=== PATIENT | female | born 1975 | race Caucasian/White ===

== ENCOUNTER 2018-06-14 06:36 | Emergency (ER) | payer OTHER ==
[~2018-06-14] VITALS: Ht 157.5 cm; Wt 72.6 kg
[~2018-06-14 06:36] MED LIST: ZOFRAN ODT4 MG PO; ZOFRAN ODT4 MG SUBLING
[2018-06-14 07:46] LABS: ABSOLUTE EOSINOPHILS 0.3 thou/uL (0.0-0.7); HEMATOCRIT 38.7 % (37.0-47.0); PLATELET COUNT* 196 thou/uL (150-400); WBC 6.4 thou/uL (4.0-11.0)
[2018-06-14 07:48] LABS: ABSOLUTE BASOPHILS 0.1 thou/uL (0.0-0.2); ABSOLUTE LYMPHOCYTES 1.8 thou/uL (0.8-5.3); ABSOLUTE MONOCYTES 0.4 thou/uL (0.0-1.2); ABSOLUTE NEUTROPHILS 3.8 thou/uL (1.6-8.1); BASOPHILS 1.8 %; EOSINOPHILS 5.1 %; HEMOGLOBIN 12.8 gm/dL (12.0-15.0); LYMPHOCYTES 27.8 %; MCH 30.8 pg (26.0-34.0); MCHC 33.1 g/dL (28.0-37.0); MCV 93.1 fL (80.0-100.0); MONOCYTES 6.5 %; MPV 9.3 fl. (7.2-11.1); NUCLEATED RBCS 0 /100WBC; POLYS 58.8 %; RBC 4.15 mil/uL (4.20-5.00); RDW-CV 13.4 % (10.5-14.5)
[2018-06-14 07:53] LABS: ANION GAP 11 mmol/L (7-16); BUN 12 mg/dL (7-18); CALCIUM 8.8 mg/dL (8.5-10.1); CHLORIDE 105 mmol/L (98-107); CO2 26 mmol/L (21-32); CREATININE 0.7 mg/dL (0.6-1.3); GLUCOSE 98 mg/dL (70-99); POTASSIUM 3.8 mmol/L (3.5-5.1); SODIUM 142 mmol/L (136-145)
[2018-06-14 08:01] LABS: ALBUMIN 3.6 g/dL (3.4-5.0); SGOT 20 U/L (15-37); SGPT 29 U/L (30-65); TOTAL BILIRUBIN 0.2 mg/dL (<0.1-1.0); TOTAL PROTEIN 6.9 g/dL (6.4-8.2); TROPONIN-I LEVEL <0.06 ng/mL (<0.06)
[2018-06-14 08:15] LABS: ALKALINE PHOSPHATASE 70 U/L (46-116)
[2018-06-14 09:39] VITALS: BP 121/74
--- NOTE | 2018-06-15 11:37 | EKG ---
[place] [address] ELECTROCARDIOGRAM REPORT Name: BECKJACLYN [facility] [id number] Admission: 06/14/18 Attend Phys: Discharge: 06/14/18 Date of : 73 Report #: [id number] THIS REPORT FOR: //name// [facility] ED Test Date: 2018-06-14 Test Time: 07:28:05 Pat Name: JACLYN SOLARES Department: Room: Gender: F Facilities Painter: Clayton LINARES : 1975 Requested By: Dee Dee Haywood Order Number: [id number] MD: Jonel Wellington Measurements Intervals [place] Rate: 56 P: 13 DC: 162 QRS: -27 QRSD: 112 T: -1 QT: 475 QTc: 459 Interpretive Statements Sinus bradycardia Borderline intraventricular conduction delay Nonspecific T abnormalities, anterior leads Compared to ECG 11/03/2016 07:41:32 T-wave abnormality now present Electronically Signed On 06-15-2018 11:37:05 AIRLINE DISPATCHER by Jonel Wellington [email or web address] <ELECTRONICALLY SIGNED> By: Jonel Wellington MD, [facility] 06/15/18 1137 0728 0728 Jonel Wellington MD, [facility] /EPI
== END 2018-06-14 09:39 | disposition home or self-care (01) ==
LOC: M.ERS 06:36
PROVIDERS: Personal Emergency Response Attendant
DX: F41.9 Anxiety disorder, unspecified (principal); R07.89 Other chest pain

== ENCOUNTER 2019-09-09 03:02 | Emergency (ER) | payer OTHER ==
[~2019-09-09] VITALS: Ht 157.5 cm; Wt 72.6 kg
[2019-09-09 03:09] VITALS: BP 148/79
[2019-09-09] MEDS ORDERED: LIPITOR10 MG PO (03:11)
[2019-09-09] MEDS ORDERED: PREDNISONE 20 M20 M1 PO (03:37)
[2019-09-09] MEDS ORDERED: AMOXICILLIN 50500 MG PO (03:37)
[2019-09-09 03:51] LABS: INFLUENZA A ANTIGEN Negative (Negative); INFLUENZA B ANTIGEN Negative (Negative)
== END 2019-09-09 03:44 | disposition home or self-care (01) ==
LOC: M.ERS 03:02
PROVIDERS: Family Medicine
DX: J40 Bronchitis, not specified as acute or chronic (principal); E78.5 Hyperlipidemia, unspecified; Z98.890 Other specified postprocedural states

== ENCOUNTER 2020-12-10 04:12 | Emergency (ER) | payer OTHER ==
[~2020-12-10] VITALS: Ht 157.5 cm; Wt 81.7 kg
[~2020-12-10 04:12] MED LIST changes: +AMOXICILLIN 50500 MG PO; +LIPITOR10 MG PO; +PREDNISONE 20 M20 M1 PO
[2020-12-10] MEDS ORDERED: CRESTOR10 MG PO (04:27)
[2020-12-10] MEDS ORDERED: LEXAPRO 10 MG T10 M2 PO (04:27)
[2020-12-10 04:48] LABS: CALCIUM 8.4 mg/dL (8.5-10.1); CREATININE 0.8 mg/dL (0.6-1.3); POTASSIUM 3.8 mmol/L (3.5-5.1)
[2020-12-10 04:53] LABS: MAGNESIUM 2.1 mg/dL (1.8-2.4); TOTAL BILIRUBIN 0.3 mg/dL (<0.1-1.0); TOTAL PROTEIN 7.5 g/dL (6.4-8.2)
[2020-12-10 05:07] LABS: ABSOLUTE BASOPHILS 0.1 thou/uL (0.0-0.2); ABSOLUTE EOSINOPHILS 0.3 thou/uL (0.0-0.7); ABSOLUTE LYMPHOCYTES 2.1 thou/uL (0.8-5.3); ABSOLUTE MONOCYTES 0.4 thou/uL (0.0-1.2); ABSOLUTE NEUTROPHILS 3.2 thou/uL (1.6-8.1); BASOPHILS 2.4 %; EOSINOPHILS 5.5 %; HEMATOCRIT 38.1 % (37.0-47.0); HEMOGLOBIN 12.8 gm/dL (12.0-15.0); LYMPHOCYTES 34.1 %; MCH 30.2 pg (26.0-34.0); MCHC 33.5 g/dL (28.0-37.0); MCV 89.9 fL (80.0-100.0); NUCLEATED RBCS 0 /100WBC; PLATELET COUNT* 229 thou/uL (150-400); RBC 4.24 mil/uL (4.20-5.00); RDW-CV 14.1 % (10.5-14.5); WBC 6.1 thou/uL (4.0-11.0)
[2020-12-10 05:36] LABS: URINE BILIRUBIN NEGATIVE (Negative); URINE BLOOD NEGATIVE (Negative); URINE CLARITY CLEAR; URINE COLOR YELLOW; URINE GLUCOSE-RANDOM NEGATIVE (Negative); URINE KETONES NEGATIVE (Negative); URINE LEUKOCYTES-REFLEX NEGATIVE (Negative); URINE NITRITE-REFLEX NEGATIVE (Negative); URINE PROTEIN NEGATIVE (Negative); URINE SPECIFIC GRAVITY 1.025 (1.005-1.030); URINE UROBILINOGEN 0.2 E.U./dl (0.2-1.0)
[2020-12-10] MEDS ORDERED: ZOFRAN ODT4 MG PO (05:53)
[2020-12-10] MEDS ORDERED: PROTONIX40 MG PO (05:53)
[2020-12-10 06:31] VITALS: BP 123/75
== END 2020-12-10 06:32 | disposition home or self-care (01) ==
LOC: M.ERS 04:12
PROVIDERS: Emergency Medicine
DX: R11.2 Nausea with vomiting, unspecified (principal); R10.13 Epigastric pain; K21.9 Gastro-esophageal reflux disease without esophagitis; F41.9 Anxiety disorder, unspecified; E78.5 Hyperlipidemia, unspecified; Z98.890 Other specified postprocedural states; Z79.899 Other long term (current) drug therapy

== ENCOUNTER 2020-12-15 03:53 | Emergency (ER) | payer OTHER ==
[~2020-12-15] VITALS: Ht 157.5 cm; Wt 79.4 kg
[~2020-12-15 03:53] MED LIST changes: +CRESTOR10 MG PO; +LEXAPRO 10 MG T10 M2 PO; +PROTONIX40 MG PO
[2020-12-15] MEDS ORDERED: PROTONIX40 MG PO (04:56)
[2020-12-15] MEDS ORDERED: CARAFATE 1 GM TA1 GM PO (04:56)
[2020-12-15] MEDS ORDERED: ZOFRAN ODT4 MG PO (04:56)
[2020-12-15 05:59] VITALS: BP 132/70
== END 2020-12-15 06:00 | disposition home or self-care (01) ==
LOC: M.ERS 03:53
DX: K21.9 Gastro-esophageal reflux disease without esophagitis (principal); R11.2 Nausea with vomiting, unspecified; F41.9 Anxiety disorder, unspecified; E78.5 Hyperlipidemia, unspecified; Z98.890 Other specified postprocedural states; Z79.899 Other long term (current) drug therapy

== ENCOUNTER 2021-06-13 06:10 | Emergency (ER) | payer OTHER ==
[~2021-06-13] VITALS: Ht 157.5 cm; Wt 77.1 kg
[~2021-06-13 06:10] MED LIST changes: +CARAFATE 1 GM TA1 GM PO
[2021-06-13 06:34] LABS: URINE BILIRUBIN NEGATIVE (Negative); URINE BLOOD 1+ (Negative); URINE CLARITY CLEAR; URINE COLOR YELLOW; URINE GLUCOSE-RANDOM NEGATIVE (Negative); URINE KETONES NEGATIVE (Negative); URINE LEUKOCYTES-REFLEX NEGATIVE (Negative); URINE NITRITE-REFLEX NEGATIVE (Negative); URINE PROTEIN NEGATIVE (Negative); URINE SPECIFIC GRAVITY >= 1.030 (1.005-1.030); URINE UROBILINOGEN 0.2 E.U./dl (0.2-1.0)
[2021-06-13 06:47] LABS: ABSOLUTE BASOPHILS 0.1 thou/uL (0.0-0.2); ABSOLUTE EOSINOPHILS 0.4 thou/uL (0.0-0.7); ABSOLUTE LYMPHOCYTES 1.6 thou/uL (0.8-5.3); ABSOLUTE MONOCYTES 0.3 thou/uL (0.0-1.2); ABSOLUTE NEUTROPHILS 3.4 thou/uL (1.6-8.1); BASOPHILS 1.2 %; EOSINOPHILS 6.3 %; HEMATOCRIT 37.1 % (37.0-47.0); HEMOGLOBIN 12.4 gm/dL (12.0-15.0); LYMPHOCYTES 27.3 %; MCHC 33.4 g/dL (28.0-37.0); MCV 86.9 fL (80.0-100.0); MPV 8.7 fl. (7.2-11.1); NUCLEATED RBCS 0 /100WBC; PLATELET COUNT* 235 thou/uL (150-400); POLYS 59.2 %; RBC 4.27 mil/uL (4.20-5.00); RDW-CV 14.4 % (10.5-14.5); WBC 5.8 thou/uL (4.0-11.0)
[2021-06-13 06:47] LABS: SQUAMOUS NONE SEEN /LPF (0-3)
[2021-06-13 06:48] LABS: BACTERIA-REFLEX None Seen /HPF (None Seen); CASTS None Seen /LPF (None Seen); MUCUS 0-3 Light strn/LPF (None Seen); URINE RBC 0-2 Rare /HPF (0-2); URINE WBC-REFLEX None Seen /HPF (0-5)
[2021-06-13 06:49] LABS: AMORPHOUS URATES Few /LPF (None Seen); CRYSTALS None Seen /LPF (None Seen)
[2021-06-13 07:02] LABS: CALCIUM 8.7 mg/dL (8.5-10.1); CREATININE 0.9 mg/dL (0.6-1.3); POTASSIUM 3.7 mmol/L (3.5-5.1)
[2021-06-13 07:06] LABS: INFLUENZA A ANTIGEN Negative (Negative); INFLUENZA B ANTIGEN Negative (Negative)
[2021-06-13 07:08] LABS: ALBUMIN 3.7 g/dL (3.4-5.0); TOTAL BILIRUBIN 0.2 mg/dL (<0.1-1.0); TOTAL PROTEIN 7.4 g/dL (6.4-8.2)
[2021-06-13] MEDS ORDERED: PEPCID40 MG PO (07:55)
[2021-06-13 08:11] VITALS: BP 126/80
--- NOTE | 2021-06-13 09:39 | EKG ---
[place] [address] ELECTROCARDIOGRAM REPORT Name: JACLYN SOLARES Room: [facility]#: [id number] Admission: 06/13/21 Attend Phys: Discharge: 06/13/21 Date of : 73 Date of Service: 06/13/21 0629 Report #: [id number] THIS REPORT FOR: //name// [facility] ED Test Date: 2021-06-13 Test Time: 06:29:48 Pat Name: JACLYN SOLARES Department: Room: Gender: F Medical Reception: [place] : 1975 Requested By: Dee Dee Haywood Order Number: [id number] MD: Jonel Wellington Measurements Intervals [place] Rate: 70 P: 32 SD: 157 QRS: -45 QRSD: 96 T: 6 QT: 417 QTc: 450 Interpretive Statements Sinus rhythm LAD, consider left anterior fascicular block Borderline low voltage, extremity leads Compared to ECG 06/14/2018 07:28:05 Sinus bradycardia no longer present Electronically Signed On 06-13-2021 9:39:[address]NA[address] by Jonel Wellington [email or web address] <ELECTRONICALLY SIGNED> By: Jonel Wellington MD, FAC 06/13/21 0939 0629 0629 Jonel Wellington MD, [facility] /EPI
== END 2021-06-13 08:11 | disposition home or self-care (01) ==
LOC: M.ERS 06:10
PROVIDERS: Personal Emergency Response Attendant
DX: K21.9 Gastro-esophageal reflux disease without esophagitis (principal); R10.13 Epigastric pain; F41.9 Anxiety disorder, unspecified; E78.5 Hyperlipidemia, unspecified; Z98.890 Other specified postprocedural states; Z20.822 Contact with and (suspected) exposure to COVID-19; Z79.899 Other long term (current) drug therapy; Z79.891 Long term (current) use of opiate analgesic